=== PATIENT | female | born 1940 | race Caucasian/White ===

== ENCOUNTER → 2018-09-26 | Outpatient (CLI) | payer MEDICARE ==
--- NOTE | 2018-09-26 14:19 | CTL ---
EXAMINATION TYPE: CT Low Dose Lung DATE OF EXAM ORDERED: 09/26/2018 HISTORY: Personal history of tobacco abuse. Lung cancer screening CT DLP: 60.[address] CTDI: 1.80 mGy Automated exposure control for dose reduction was used. SCREENING VISIT: Initial COMPARISON: None TECHNIQUE: Low dose computed tomography scan was performed through the chest at 1 mm thick sections a nd reconstructed images in the coronal plane at [address] DIAGNOSTIC QUALITY: Satisfactory FINDINGS: Some motion artifact of the upper lungs slightly limits evaluation. LUNG NODULES: Present, detailed below: There is a 3 mm pulmonary nodule that is solid in nature on series 4 image 71 in the left upper lobe. There is a calcified benign granuloma on series 4 image 113 in the left upper lobe laterally. There is a 3 mm subsolid pulmonary nodule in the right upper lobe on series 4 image 75 with groundgla ss surrounding opacity such as on image 76. There is a calcified benign right upper lobe granuloma on series 4 image 105 anteriorly. There is a groundglass 3 mm pulmonary nodule within the right upper lobe near the interlobar fissure on series 4 image 118 and a subpleural location. LUNGS: COPD: Severity: Mild centrilobular Fibrosis: Severity: None Lymph nodes: Nonenlarged RIGHT PLEURAL SPACE: Effusion: None Calcification: None Thickening: None Pneumothorax: None LEFT PLEURAL SPACE: Effusion: None Calcification: None Thickening: None Pneumothorax: None HEART: Heart Size: Mildly enlarged Coronary calcification: Moderate Pericardial effusion: None OTHER FINDINGS: Upper abdomen: Fluid attenuated probable 8 mm hepatic cyst in series 3 image 270 within the inferior right hepatic lobe. Bony thorax: Moderate multilevel degenerative changes of the spine are noted. Supraclavicular region: Thyroid gland is slightly heterogenous without discrete thyroid nodule. IMPRESSION: Lung RADS 2-bilateral pulmonary nodules that are subcentimeter relating to nodules with a very low likelihood of becoming a clinically active cancer due to lack of size. However continued an nual screening with low dose CT in 12 months is recommended to ensure stability. FOLLOW UP CT CHEST RECOMMENDATION: Continued annual screening with low dose CT in [address] LUNG RAD: Lung-Rad 2 Benign Appearance or Behavior
== END | disposition home or self-care (01) ==
LOC: RADCTMAIN 13:25
PROVIDERS: ATTEND Family Medicine
DX: Z12.2 Encounter for screening for malignant neoplasm of respiratory organs (principal); R91.8 Other nonspecific abnormal finding of lung field; Z87.891 Personal history of nicotine dependence

== ENCOUNTER → 2022-03-09 | Outpatient (CLI) | payer MEDICARE ==
--- NOTE | 2022-03-09 11:55 | USB ---
Reason for Exam: Clinical finding. Additional evaluation requested from abnormal screening. Last mammogram was performed 17 year(s) and 10 month(s) ago. Patient History: Menarche at age 13. Hysterectomy at age 31. Postmenopausal. Excisional Biopsy on the Left side. Risk Values: Graciela 5 year model risk: 1.4%. NCI Lifetime model risk: 2.2%. Prior Study Comparison: 01/07/2003 Bilateral Special View Mammogram, [facility]. 10/03/2003 Bilateral Special View Mammogram, [facility]. 04/21/2004 Bilateral Screening Mammogram, [facility]. Tissue Density: There are scattered fibroglandular densities. Findings: Analyzed By CAD. Mammogram Bilateral areas of asymmetric density do not clearly show any persisting abnormality on 3-D images. Benign vascular calcifications posterior superior right breast on magnification views. A 9 mm round nodule at the right axilla likely represents a lymph node but can be further assessed with ultrasound. An additional benign punctate regional calcifications upper outer quadrant right breast on magnification views are benign. On the left, benign vascular and oil cyst calcifications are present as well as a few scattered benign punctate calcifications. Findings: The whole breast of the left breast, the upper outer quadrant of the right breast, the axilla of both breasts and the retroareolar of both breasts were scanned. Targeted right breast ultrasound upper outer quadrant and axilla demonstrates a prominent benign-appearing 2.6 x 0.8 cm lymph node in the axilla. Possible mammographic correlate. No other solid or cystic lesion is seen. Six-month follow-up right breast mammogram can reassess as a precautionary measure. Whole left breast ultrasound including scanning of the subareolar region and axilla is performed. There is mild duct ectasia but no solid or cystic lesion. No axillary lymphadenopathy. 6 month follow-up mammogram can be performed given the areas of asymmetric density in the lack of prior comparison studies. Overall Assessment: Probably benign, BI-RAD 3 Assessment: MG 3D diag mammo w/cad KENNETH - Bilateral: Incomplete: need additional imaging evaluation, BI-RAD 0. Management: Diagnostic Mammogram of both breasts in 6 months. 1. Bilateral diagnostic mammograms in 6 months as there are no priors available for comparison. The follow-up can reassess the areas of asymmetric density on both sides as well as the 9 mm nodule in the right axilla, likely lymph node. 2. Consider surgical consultation for the patient's left-sided nipple discharge. Suspicious discharge that would warrant further evaluation includes clear or bloody spontaneous discharge localized to a single pore on the nipple. 3. Patient should continue monthly self breast exams. This exam should not preclude additional follow-up of suspicious palpable abnormalities. Results were given to the patient verbally at the time of exam. Electronically signed and approved by: Azeb Wynn M.D. Radiologist
== END | disposition home or self-care (01) ==
LOC: RADMAMWWP 09:54
PROVIDERS: ATTEND Family Medicine
DX: R92.1 Mammographic calcification found on diagnostic imaging of breast (principal); N64.52 Nipple discharge
CPT/HCPCS: 77066; 76642; G0279; 77062

== ENCOUNTER → 2022-09-16 | Outpatient (CLI) | payer MEDICARE ==
--- NOTE | 2022-09-16 12:19 | MM ---
Reason for Exam: Follow-up at short interval from prior study. Last screening mammogram was performed 7 month(s) ago. Patient History: Menarche at age 13. Patient has no children. Hysterectomy at age 31. Postmenopausal. Excisional Biopsy on the Left side. Risk Values: Graciela 5 year model risk: 2.1%. NCI Lifetime model risk: 3.1%. Tissue Density: There are scattered fibroglandular densities. Findings: Analyzed By CAD. Multiple asymmetric densities are redemonstrated bilaterally. Subareolar left MLO view becomes less defined on spot 3-D, similar to 6 months prior. Regional punctate calcifications lateral right breast remain unchanged for 6 months. A few scattered benign oil cyst calcifications are redemonstrated. No significant change from prior baseline exam. An additional short interval follow-up to reassess the asymmetric densities. Overall Assessment: Probably benign, BI-RAD 3 Management: Diagnostic Mammogram of both breasts in 6 months. 1. Total one-year follow-up from the patient's new baseline exam. 2. Patient should continue monthly self breast exams. 3. This exam should not preclude additional follow-up of suspicious palpable abnormalities. Results were given to the patient verbally at the time of exam. Electronically signed and approved by: Azeb Wynn M.D. Radiologist
== END | disposition home or self-care (01) ==
LOC: RADMAMWWP 11:07
PROVIDERS: ATTEND Family Medicine
DX: R92.8 Other abnormal and inconclusive findings on diagnostic imaging of breast (principal); Z78.0 Asymptomatic menopausal state
CPT/HCPCS: 77066; G0279; 77062